=== PATIENT | male | born 1955 | race Caucasian/White ===

== ENCOUNTER 2017-06-07 08:33 | Day surgery (SDC) | payer OTHER ==
[~2017-06-07 08:33] MED LIST: Buffered Lidocaine 0.9% SYRIN* 5 ML/SYR SYRINGE INTRADERM ONE; Dexamethasone IV* 4 MG/ML 1 ML (4 MG) IV SLOW PU ONE; Dexamethasone IV* 4 MG/ML 1 ML (4 MG) ONE; Famotidine IV* 10 MG/ML 2 ML (20 mg) IV ONE; Famotidine IV* 10 MG/ML 2 ML (20 mg) ONE; Lidocaine 2% PF * 5 ML VIAL ONE; Midazolam* 1 MG/ML 2 ML VIAL (2 MG) ONE; Propofol* 10 MG/ML 20 ML BTL IV PUSH ONE; fentaNYL* 50 MCG/ML 2 ML VIAL (100 MCG VIAL) ONE
[2017-06-07] MEDS ORDERED: ceFAZolin 2 GM PREMIX (*) 2 GM/50 ML BAG IVPB ONE (08:44)
[2017-06-07] MEDS ORDERED: Bupivacaine 0.5%* 50 ML VIAL ONE (09:42)
[2017-06-07] MEDS ORDERED: Lidocaine 2% PF * 5 ML VIAL ONE (09:55)
[2017-06-07] MEDS ORDERED: Bupivacaine 0.25% SDV* 30 ML ONE (10:05)
[2017-06-07] MEDS ORDERED: Acetaminophen IV 1GM/100ML * 100 ML ONE (10:05)
[2017-06-07] MEDS ORDERED: Rocuronium* 10 MG/ML VIAL ONE (10:20)
[2017-06-07] MEDS ORDERED: HYDROmorphone INJ* 1 MG/ML CARPUJECT SYRINGE ONE (10:52)
[2017-06-07] MEDS ORDERED: PROCHLORPERAZINE INJ 5 MG/ML 2 ML VIAL IV PRN (10:55)
[2017-06-07] MEDS ORDERED: Naloxone* 0.4 MG/ML 1 ML VIAL IV PRN (10:55)
[2017-06-07] MEDS ORDERED: oxyCODONE TAB* 5 MG TAB PO PRN ×2 (10:55)
[2017-06-07] MEDS ORDERED: HYDROmorphone INJ* 1 MG/ML CARPUJECT SYRINGE IV PRN (10:55)
[2017-06-07] MEDS ORDERED: diPHENhydraMINE IV* 50 MG/ML 1 ml VIAL (BENADRYL) IV PRN (10:55)
[2017-06-07] MEDS ORDERED: fentaNYL* 50 MCG/ML 2 ML VIAL (100 MCG VIAL) IV PRN (10:55)
[2017-06-07] MEDS ORDERED: methylPREDNISolone ACETATE 80* 80 MG/ML 1 ML VIAL ONE (11:09)
[2017-06-07] MEDS ORDERED: Ondansetron INJ* 2 MG/ML VIAL ONE (11:14)
[2017-06-07 12:22] VITALS: BP 131/87
--- NOTE | 2017-06-07 13:38 | OP ---
CC: PCP, Dr. Lucien Hardwick * DATE OF OPERATION: 06/07/17 - [facility] DATE OF : 59 SURGEON: Reno Alfaro MD W[employer] MECHANIC: NADIRA Dhaliwal. Health Type Technician was needed for the entirety of the case to help with positioning, retraction, and utilized throughout all portions of the case. ANESTHESIOLOGIST: Jayla Childress MD ANESTHESIA: General. PRE-OP DIAGNOSIS: Left shoulder calcific tendinitis. POST-OP DIAGNOSIS: Left shoulder calcific tendinitis. OPERATIVE PROCEDURE: 1. Left shoulder arthroscopy with tenotomy with calcific tendon debridement. 2. Subacromial decompression with acromioplasty. 3. 80 mg of Depo-Medrol injection. INDICATIONS: Emery Montague is a 62-year-old male, who has worsening calcific tendinitis, is diagnosed over a year ago, it is persistent. The lesion has grown larger. He has failed conservative management including injections, anti-inflammatories, and physical therapy. Risks and benefits of surgery were discussed at length including, but not limited to, bleeding, infection, damage to nerves, vessels, surrounding structures, wound nonhealing, persistent pain, need for further surgery, scarring, stiffness, risk of rotator cuff tear requiring repair, and he has elected to proceed with treatment. COMPLICATIONS: None. ESTIMATED BLOOD LOSS: Minimal. DESCRIPTION OF PROCEDURE: The patient was greeted in the preoperative area by the attending surgeon. Correct extremity was marked and consent was confirmed. The patient was brought back to the operating suite, where he was placed in the supine position on the operating table. He then underwent general anesthesia with endotracheal intubation, after which he was placed in the right lateral decubitus position. All bony prominences were padded, he was secured with peg board. An axillary roll was placed, the left shoulder was draped unsterile with 10 pounds of traction. The left shoulder was prepped and draped in usual sterile fashion beginning with chlorhexidine soap and alcohol wipe, and a final prep with ChloraPrep. After appropriate surgical pause indicating site, side, procedure, and administration of antibiotics, the standard postero-lateral portals were made sharply with a 11 blade. The scope was introduced into the joint and the joint was examined. There were grade 0 to 1 changes in the glenohumeral joint. The anterior posterior labrum had mild fraying. The superior labrum had mild tearing but the biceps did not appear to be subluxed. There was no erythema on the bicipital groove. The undersurface of the rotator cuff, supraspinatus was pristine, the subscap was pristine. Once the diagnostic portion was done, attention was directed to the subacromial space. The scope was positioned into the subacromial space. The lateral portals were made in outside-in fashion. There was abundance hyperemic thick bursitis present. This was debrided back using the shaver. Electrocautery was used to maintain hemostasis as the tissue was very friable. The undersurface of the acromion was skeletonized using electro-cautery device. There was a small anterolateral spur which was debrided back using the 4.0 oval bur. All fluid and debris was removed from this portion of the case. Attention was then directed to calcific lesion, which was gently probed with a blunt probe. Once this was identified, an 18-gauge needle was used to carefully debride the calcium from this. This resulted in decompression of the calcific lesion. The shaver was used to remove the loose debris and the tendon was carefully manipulated such that there was no further tearing. At the end, the tendon was still intact and therefore, no repair required to be made. The 18 -gauge needle was placed under arthroscope visualization. The wounds were copiously irrigated with sterile saline and 80 mg of Depo-Medrol was injected into subacromial space. The remainder of the joint was injected with 0.25% Marcaine plain. Sterile dressings were applied. Cryo/Cuff and regular sling were applied. He was awoke from anesthesia and transferred to PACU in stable condition. POSTOPERATIVE PLAN: He will be nonweightbearing. He will start range of motion as soon as he is comfortable. He will be discharged on pain medications as well as antiinflammatories. DVT prophylaxis was considered but deferred due to no previous personal or family history. I will see the patient back in 10 to 14 days. [id number]/[facility] #: [id number] GENET
== END 2017-06-07 12:23 | disposition home or self-care (01) ==
LOC: OREAST 08:33
PROVIDERS: ATTEND Orthopaedic Surgery
DX: M65.222 Calcific tendinitis, left upper arm (principal); M75.42 Impingement syndrome of left shoulder; Z87.891 Personal history of nicotine dependence; M19.90 Unspecified osteoarthritis, unspecified site; D64.9 Anemia, unspecified
CPT/HCPCS: J0690; J1040; J1100; J1170; J2250; J2405; J2704; J3010

== ENCOUNTER 2017-06-12 12:45 | Emergency (ER) | payer OTHER ==
[2017-06-12 12:54] VITALS: BP 140/91
--- NOTE | 2017-06-12 12:57 | UC ---
Dental HPI - HPI Summary HPI Summary: 62 y/o male presents to the urgent care c/o toothache #15 molar in the left upper jaw since yesterday. Pt reports his dentist was doing some dental work on that molar, but he didn't return to finish it. Pt states last Wednesday he had left shoulder surgery for his Calcific Tendinopathy. He was Rx Hydrocodone which he still taking it. Pain today is 3/10 w/ mild swelling over his left cheek. Pt denies fever, SOB, trismus, chest pain, ROCK, dizziness, abdominal pain , N/V/D - History of Current Complaint Chief Complaint: UCDentalProblem Stated Complaint: DENTAL Time Seen by Provider: 06/12/17 12:53 Hx Obtained From: Patient Onset/Duration: Sudden Onset Severity: Mild Pain Intensity: 3 Pain Scale Used: 0-10 Numeric Aggravating Factor(s): Chewing Alleviating Factor(s): OTC Meds Related History: Swelling - Allergies/Home Medications Allergies/Adverse Reactions: Allergies Allergy/AdvReac Type Severity Reaction Status Date / Time ALL NUTS Allergy Severe THROAT Uncoded 06/12/17 12:54 SWELLS ENVIRONMENTAL/SEASONAL Allergy Intermediate ITCHY Uncoded 06/12/17 12:54 HAYFEVER THROAT, ITCHY EYES Home Medications: Home Medications Oxycodone HCl 5 mg PO 06/12/17 [History] PMH/Surg Hx/FS Hx/Imm Hx Previously Healthy: Yes Cardiovascular History: Hypertension Psychological History: Anxiety - Surgical History Surgical History: Yes Surgery Procedure, Year, and Place: BILATERAL CATARACT EXTRACTION WITH IOL IMPLANTS, [facility]. UMBILICIAL HERNIA REPAIR, [facility]. UMBILICIAL HERNIA REPAIR, [facility]. LEFT INGUINAL HERNIA REPAIR, [facility]. RIGHT KNEE MENISCUS SURGERY. SURGERY TO REMOVE NASAL POLYPS. tonsillectomy and adenoidectomy as a child. nose fracture repair as a child - Family History Known Family History: Positive: Cardiac Disease, Hypertension - Social History Occupation: Unemployed Lives: With Family Alcohol Use: Occasionally Substance Use Type: Marijuana Substance Use Comment - Amount & Last Used: daily Smoking Status (MU): Former Smoker Amount Used/How Often: smoked for 9 years 1ppd Have You Smoked in the Last Year: No When Did the Patient Quit Smoking/Using Tobacco: 1975 Review of Systems Constitutional: Negative Skin: Negative Eyes: Negative ENT: Dental Pain, Other - left cheek swelling Respiratory: Negative Cardiovascular: Negative Gastrointestinal: Negative Genitourinary: Negative Motor: Negative Neurovascular: Negative Musculoskeletal: Negative Neurological: Headache Psychological: Negative Is Patient Immunocompromised?: No All Other Systems Reviewed And Are Negative: Yes Physical Exam - Summary Physical Exam Summary: Vital Signs Reviewed: Yes General: well developed. well nourished male sitting in the examining table w/o any apparent distress Eyes: Positive: Conjunctiva Clear - PERRLA, EOMI, fundi grossly normal ENT: Positive: Normal ENT inspection, Hearing grossly normal, Pharyngeal erythema, TMs normal, Uvula midline. Negative: Tonsillar swelling, Tonsillar exudate, Trismus Dental: Positive: Percussion Tenderness @ - molar 15, Gross Decay/Caries @ - molar 15, mild swelling over the left cheek, no erythema observed or gum swelling around that molar positive Cervical Lymphadenopathy - B/L anterior, Other: - Neck: Positive: Supple, Nontender Respiratory: Positive: Chest non-tender, Lungs clear, Normal breath sounds, No respiratory distress Cardiovascular: Positive: RRR, No Murmur, Pulses Normal, Brisk Capillary Refill Abdomen Description: Positive: Nontender, No Organomegaly, Soft. Negative: CVA Tenderness (R), CVA Tenderness (L) Bowel Sounds: Positive: Present Musculoskeletal: Positive: Strength Intact, ROM Intact, No Edema Neurological Exam: Normal Psychological Exam: Normal Skin Exam: Normal Triage Information Reviewed: Yes Vital Signs: Initial Vital Signs Temp 100.0 F 06/12/17 12:51 Pulse 106 06/12/17 12:51 Resp 18 06/12/17 12:51 BP 140/91 06/12/17 12:51 Pulse Ox 100 06/12/17 12:51 Dental Complaint Course/Dx - Course Course Of Treatment: 62 y/o male presents to the urgent care c/o toothache #15 molar in the left upper jaw since yesterday. Pt reports his dentist was doing some dental work on that molar, but he didn't return to finish it. Pt states last Wednesday he had left shoulder surgery for his Calcific Tendinopathy. He was Rx Hydrocodone which he still taking it. Pain today is 3/10 w/ mild swelling over his left cheek. Pt denies fever, SOB, trismus, chest pain, ROCK, dizziness, abdominal pain, N/V/D. Hx obtained. PE:Percussion Tenderness @ - molar 15, Gross Decay/Caries @ - molar 15, mild swelling over the left cheek, no erythema observed or gum swelling around that molar positive Cervical Lymphadenopathy - B /L anterior. 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 Pt Rx Amoxicillin PO to cover is an infection is developing on the rooth canal and Naproxen PO for pain. Pt strongly advised to f/u with Dentist as soon as possible further evaluation and treatment. Pt's BP is elevated today advised to decrease salt in diet, monitor BP and f/u with PCP for further management. Pt understood and agreed with plan of care. Left the clinic ambulating. - Differential Dx/Diagnosis Differential Diagnosis/Dx: Dental Abscess, Dental Caries, Fractured Tooth, Odontogenic Pain, Peridontic Disease Provider Diagnoses: 1- Molar # 15 tootache w/ caries. 2- Uncontrolled HTN Discharge - Sign-Out/Discharge Documenting (check all that apply): Discharge - Discharge Plan Condition: Stable Disposition: HOME Prescriptions: Amoxicillin PO (*) [Amoxicillin 875 MG (*)] 875 mg PO BID #20 tab Naproxen TAB* [Naprosyn 250 mg TAB*] 250 mg PO Q8H PRN #30 tab PRN Reason: Pain Patient Education Materials: Low-Sodium Diet (ED), Toothache (ED) Referrals: Lucien Schwarz MD [Primary Care Provider] - 2 Days Additional Instructions: 1-Please take full course of antibiotic to avoid resistance. Please take probiotics if you develop any diarrhea while taking the antibiotic 2- Take Naproxen as instructed after meals to alleviate pain and swelling. 3- F/u with your Dentist or Dental List provided as soon as possible 1-2 days for further treatment. 4- If symptoms do not improve or worsen please return to the urgent care or f/u with your PCP for further evaluation and treatment 5-Your BP is elevated today. please decrease salt in your diet, monitor BP and if it continues to be elevated please f/u with your PCP for further management - Billing Disposition and Condition Condition: STABLE Disposition: HOME
== END 2017-06-12 13:26 | disposition home or self-care (01) ==
LOC: UCEAST 12:45
DX: K02.9 Dental caries, unspecified (principal); R03.0 Elevated blood-pressure reading, without diagnosis of hypertension; I10 Essential (primary) hypertension; F41.9 Anxiety disorder, unspecified; Z87.891 Personal history of nicotine dependence
CPT/HCPCS: 99212; G0463

== ENCOUNTER 2017-08-03 15:34 | Emergency (ER) | payer OTHER ==
--- OUTSIDE RECORDS SUMMARY | 2017-08-03 15:40 | XMS REPORT ---
:1955 External Reference #:[id number] Author Organization [facility] Address [address] [address] Phone [phone] Care Team Providers Name Role Phone Lucien Schwarz MD Primary Care Physician Unavailable Payers Type Date Identification Numbers Payment Provider Subscriber Commercial Policy Number: [id number] [place] Emery Montague PayID: [id number] [address] [address] [place] [address] Problems Date Description Provider Status Onset: 06/01/2017 Calcium deposits in tendon Reno Alfaro MD Active Family History Date Family Member(s) Problem(s) Comments General No Current Problems Social History Type Date Description Comments Marital Status Single Lives With Alone Occupation Not Currently Working ETOH Use Occasionally consumes alcohol Smoking Patient has never smoked Recreational Drug Use Denies Drug Use Daily Caffeine Consumes on average 1 cup of regular coffee per day Daily Caffeine Consumes on average 1 cup of hot tea per day Exercise Type/Frequency Exercises sporadically Allergies, Adverse Reactions, Alerts Date Description Reaction Status Severity Comments 03/17/2016 NKDA active 03/17/2016 Tree Nuts active Mouth swells up,lips and tongue Medications Medication Date Status Form Strength Qnty SIG Indications Ordering Provider Oxycodone HCL 06/07/ Active Tablets 5mg 25tabs 1-2 tabs 2017 by mouth MD Angelina every 4-6 hours as needed Cyclobenzaprine / Active Tablets 10mg Take 1/2 Unknown HCL 0000 To 1 Tab 3 Times Daily If Needed For Muscle Spasm Hydrocodone-Aceta / Active Tablets 10-325mg take 1 Unknown minophen 0000 tablet every 4 hours if needed For Severe Back Pain Lisinopril / Active Tablets 5mg 1 po qday Unknown 0000 Naproxen / Active Tablets 500mg 1 po bid Unknown 0000 Zolpidem Tartrate / Active Tablets 5mg take 1/2 Unknown 0000 to 1 tablet by mouth at bedtime if needed Equate Plus / Active Liquid as Unknown 0000 directed. Diphenhydramine / Active Capsules 25mg 1/2 to 1 Unknown HCL 0000 tablet po at hs. Baclofen / Active Tablets 10mg Take 1/2 Unknown 0000 To 1 Tablet By Mouth 3 Times A Day Medications Administered in Office Medication Date Status Form Strength Qnty SIG Indications Ordering Provider Celestone 3 mg Administered Injection Norris M and 3mg 017 MD Caroline Depomedrol Administered Injection Norris M 40MG 016 MD Caroline Vital Signs Date Vital Result Comment 07/20/2017 Height 72 inches 6'0" Weight 148.00 lb Heart Rate 68 /min BP Systolic 110 mmHg BP Diastolic 68 mmHg Body Temperature 98.8 F Pain Level 2 BMI (Body Mass Index) 20.1 kg/m2 06/22/2017 Height 72 inches 6'0" Weight 148.00 lb BP Systolic 124 mmHg BP Diastolic 66 mmHg Respiratory Rate 18 /min Body Temperature 98.5 F Pain Level 2 BMI (Body Mass Index) 20.1 kg/m2 06/01/2017 Height 72 inches 6'0" Weight 148.00 lb Heart Rate 89 /min Respiratory Rate 16 /min Pain Level 8 BMI (Body Mass Index) 20.1 kg/m2 05/06/2017 Height 72 inches 6'0" Weight 148.00 lb w/ shoes Heart Rate 76 /min reg BP Systolic Sitting 144 mmHg Rue BP Diastolic Sitting 84 mmHg Rue Respiratory Rate 16 /min Pain Level 2 left shoulder BMI (Body Mass Index) 20.1 kg/m2 12/09/2016 Height 72 inches 6'0" Weight 148.00 lb Heart Rate 76 /min BP Systolic Sitting 122 mmHg BP Diastolic Sitting 68 mmHg Respiratory Rate 16 /min Pain Level 6 BMI (Body Mass Index) 20.1 kg/m2 03/17/2016 Heart Rate 100 /min BP Systolic Sitting 128 mmHg BP Diastolic Sitting 88 mmHg Pain Level 5 02/04/2016 Height 72 inches 6'0" Weight 147.00 lb Heart Rate 76 /min BP Systolic 144 mmHg BP Diastolic 76 mmHg BMI (Body Mass Index) 19.9 kg/m2 Results Description No Information Procedures Date CPT Code Description Status 06/07/2017 54205 Arthroscopy,Shoulder Decompression Of Subacromial Space Completed W/Acromio 06/07/2017 87382 Arthroscopy,Shoulder Decompression Of Subacromial Space Completed W/Acromio 06/07/2017 73380 Arthroscopy Shoulder Debridement Extensive Completed 06/07/2017 50795 Arthroscopy Shoulder Debridement Extensive Completed 12/09/2016 Inject/Drain Joint/Bursa Major Completed 02/04/2016 63046 Rad Shoulder Comp, Min. 2 Views Completed 02/04/2016 Inject/Drain Joint/Bursa Major Completed Encounters Type Date Location Provider CPT E/M Dx Office Visit 06/01/2017 11:15a [facility] [place] [address] M65.222 [facility] Office Visit 05/06/2017 11:00a [facility] [place] [address] M65.222 [facility] M25.512 Office Visit 12/09/2016 11:30a [facility] [place] [address] M65.222 [employer] [facility] [place] Office Visit 03/17/2016 11:30a [facility] [place] [address] M75.42 [employer] [facility] [place] Office Visit 02/04/2016 11:00a [facility] [place] [address] [id number] [employer] [facility] [employer] [place] M75.42 Plan of Care Future Appointment(s):08/31/2017 1:30 pm - Reno Alfaro MD at [facility]
[2017-08-03 15:48] VITALS: BP 127/92
--- NOTE | 2017-08-03 15:48 | UC ---
Skin Complaint HPI - HPI Summary HPI Summary: 62 yo male presents with left upper arm tick noticed today. Confident it was not there yesterday. - History of Current Complaint Chief Complaint: UCUpperExtremity Time Seen by Provider: 08/03/17 15:48 Stated Complaint: TICK BITE Hx Obtained From: Patient Onset/Duration: Sudden Onset Skin Exposure Onset/Duration: Hours Ago Current Severity: None Pain Intensity: 0 - Allergy/Home Medications Allergies/Adverse Reactions: Allergies Allergy/AdvReac Type Severity Reaction Status Date / Time ALL NUTS Allergy Severe THROAT Uncoded 08/03/17 15:48 SWELLS ENVIRONMENTAL/SEASONAL Allergy Intermediate ITCHY Uncoded 08/03/17 15:48 HAYFEVER THROAT, ITCHY EYES Review of Systems Constitutional: Negative Skin: Other - Tick bite left upper arm Respiratory: Negative Cardiovascular: Negative Neurological: Negative Psychological: Negative All Other Systems Reviewed And Are Negative: Yes PMH/Surg Hx/FS Hx/Imm Hx - Additional Past Medical History Additional PMH: Chronic pain Previously Healthy: Yes Cardiovascular History: Hypertension - Surgical History Surgical History: Yes Surgery Procedure, Year, and Place: BILATERAL CATARACT EXTRACTION WITH IOL IMPLANTS, [facility]. UMBILICIAL HERNIA REPAIR, [facility]. UMBILICIAL HERNIA REPAIR, [facility]. LEFT INGUINAL HERNIA REPAIR, [facility]. RIGHT KNEE MENISCUS SURGERY. SURGERY TO REMOVE NASAL POLYPS. tonsillectomy and adenoidectomy as a child. nose fracture repair as a child - Family History Known Family History: Positive: Cardiac Disease, Hypertension - Social History Lives: With Family Alcohol Use: Occasionally Substance Use Type: Marijuana Substance Use Comment - Amount & Last Used: daily Smoking Status (MU): Former Smoker Amount Used/How Often: smoked for 9 years 1ppd Have You Smoked in the Last Year: No When Did the Patient Quit Smoking/Using Tobacco: 1975 Physical Exam - Summary Physical Exam Summary: GENERAL: NAD. WDWN. No pain distress. SKIN: Left upper medial arm: Nymph tick embedded within skin. Mild erythema surrounding tick. No streaking, bleeding, or drainage. NECK: Supple. Nontender. No lymphadenopathy. CHEST: No accessory muscle use. Breathing comfortably and in no distress. CV: RRR. Without m/r/g. NEURO: Alert. CN II-XII grossly intact. PSYCH: Age appropriate behavior. Triage Information Reviewed: Yes Vital Signs: Initial Vital Signs Temp 98.7 F 08/03/17 15:42 Pulse 104 08/03/17 15:42 Resp 18 08/03/17 15:42 BP 127/92 08/03/17 15:42 Pulse Ox 100 08/03/17 15:42 Course/Dx - Course Course Of Treatment: Tick easily removed with tick twister. No treatment needed. - Diagnoses Provider Diagnoses: tick bite left arm Discharge - Sign-Out/Discharge Documenting (check all that apply): Discharge/Admit/Transfer - Discharge Plan Condition: Stable Disposition: HOME Patient Education Materials: Tick Bite (ED) Referrals: Lucien Schwarz MD [Primary Care Provider] - Additional Instructions: TICK BITE: You have been bitten by a tick. Once the tick is removed, these "bites" usually cause no problems. Tick fever, tick paralysis, [place] Spotted fever, and Lyme disease are uncommon -- but you should mention this tick bite to your doctor if you develop unusual symptoms in the next several weeks. If you develop any of the following, please see your physician promptly: (1) Fever, chills, or generalized malaise associated with a headache. (2) A red round area at the site of the bite (or elsewhere) (3) Joint pain, joint swelling or generalized weakness. (4) Redness, swelling, or drainage at the site of the bite. - Billing Disposition and Condition Condition: STABLE Disposition: Home
== END 2017-08-03 16:02 | disposition home or self-care (01) ==
LOC: UCEAST 15:34
DX: S40.862A Insect bite (nonvenomous) of left upper arm, initial encounter (principal); W57.XXXA Bitten or stung by nonvenomous insect and other nonvenomous arthropods, initial encounter; Y93.9 Activity, unspecified; Y92.9 Unspecified place or not applicable; I10 Essential (primary) hypertension; Z87.891 Personal history of nicotine dependence; Z82.49 Family history of ischemic heart disease and other diseases of the circulatory system
CPT/HCPCS: 99211; G0463

== ENCOUNTER 2017-12-13 10:04 | Day surgery (SDC) | payer OTHER ==
--- NOTE | 2017-12-10 19:26 | HP ---
PREOPERATIVE HISTORY AND PHYSICAL: DATE OF ADMISSION/SURGERY: 12/13/17 - [facility] DATE OF OFFICE VISIT: 12/10/17 ATTENDING SURGEON: Dr. Reno Alfaro.* (DICTATED BY NADIRA LEE) PROCEDURE: Left shoulder arthroscopic rotator cuff repair, decompression, debridement, possible subpectoral biceps tenodesis. CHIEF COMPLAINT: Left shoulder. HISTORY OF PRESENT ILLNESS: Emery is a 62-year-old male, who presents to the clinic for followup of his left shoulder pain due to rotator cuff tear and biceps tendinitis. He has failed conservative measures and therefore agreed to undergo a left shoulder arthroscopic rotator cuff repair, decompression, debridement, and possible subpectoral biceps tenodesis with Dr. Alfaro on . PAST MEDICAL HISTORY: Borderline anemia, hypertension, arthritis. PAST SURGICAL HISTORY: Left shoulder scope, 3 hernia surgeries, knee scope, nasal polyp surgery, tonsillectomy, other nose surgeries. The patient denies prior complications to anesthesia. MEDICATIONS: 1. Cyclobenzaprine 10 mg one-half to 1 tab 3 times a day for muscle spasms. 2. Lisinopril 5 mg 1 by mouth daily. 3. Naproxen 500 mg 1 by mouth twice a day. 4. Ambien 5 mg one-half to 1 tab by mouth at bedtime as needed. 5. plus as directed. 6. Diphenhydramine 25 mg one-half to 1 tab by mouth at night. 7. Baclofen 10 mg one-half to 1 tab by mouth 3 times a day. 8. Hydrocodone and acetaminophen 10/325 one tab every 6 hours as needed for pain. ALLERGIES: No known drug allergies. FAMILY HISTORY: Positive for diabetes and hypertension. SOCIAL HISTORY: He lives alone. He is not working. He denies tobacco use. He is a former smoker, quit in 1971. He reports occasional alcohol consumption. He exercises occasionally. He is right hand dominant. REVIEW OF SYSTEMS: A 14-point review of systems was reviewed with the patient. Positive for current complaint, otherwise negative. Denies fevers, chills, chest pain, shortness of breath, history of bleeding disorder, history of DVT or PE. PHYSICAL EXAMINATION GENERAL: A 62-year-old, well-developed, well-nourished male, in no acute distress. Alert and oriented x3. Appropriate mood and affect. Appropriate balance and coordination of the upper extremities. VITAL SIGNS: Height 72, weight 144, pulse 64, blood pressure 118/80, respiratory rate 12, temperature 98.2, BMI 19.5. HEENT: Normocephalic, atraumatic. PERRLA. Throat clear. NECK: Supple. PULMONARY: Lungs clear to auscultation bilaterally. No wheezing, rhonchi, or rales. CARDIO: Regular rate and rhythm. S1 and S2. No murmurs, gallops, or rubs. No edema. ABDOMEN: Positive bowel sounds. Soft and nontender. MUSCULOSKELETAL: Left upper extremity: Skin is intact. No warmth or erythema. Forward flexion and abduction to 155, external rotation to 50, internal rotation to thoracolumbar spine. Full range of motion , +4/5 strength, rotator cuff testing with pain. Positive impingement with Speed, Styles-Lucho, and De Baca. +2 radial pulse. Sensation intact to light touch distally. NEURO: Alert and oriented x3. Cranial nerves grossly intact. Sensation intact to light touch. DIAGNOSTIC STUDIES: MRI revealed partial-thickness tearing of the bursal side of the supraspinatus tendon. No evidence of fracture or dislocation. IMPRESSION: Left shoulder rotator cuff tear. PLAN: The patient is scheduled to undergo a left shoulder arthroscopic rotator cuff repair, decompression, debridement, and possible subpectoral biceps tenodesis with Dr. Alfaro on 12/13/17. He will follow up 10 to 14 days postop for followup and suture removal. He is on chronic pain meds; therefore, oxycodone 5 mg will be used for postop pain and Keflex for antibiotic prophylaxis if the biceps tenodesis is done. NADIRA LEE [id number]/[facility] #: [id number] [facility] CENTERPierre
[~2017-12-13 10:04] MED LIST changes: -Buffered Lidocaine 0.9% SYRIN* 5 ML/SYR SYRINGE INTRADERM ONE; -Dexamethasone IV* 4 MG/ML 1 ML (4 MG) IV SLOW PU ONE; -Famotidine IV* 10 MG/ML 2 ML (20 mg) IV ONE; -Lidocaine 2% PF * 5 ML VIAL ONE; -Midazolam* 1 MG/ML 2 ML VIAL (2 MG) ONE; -Propofol* 10 MG/ML 20 ML BTL IV PUSH ONE; -fentaNYL* 50 MCG/ML 2 ML VIAL (100 MCG VIAL) ONE
[2017-12-13] MEDS ORDERED: ceFAZolin 2 GM PREMIX in ORs 2 GM/50 ML BAG IVPB ONE (10:14)
[2017-12-13] MEDS ORDERED: ROPIVACAINE 5 MG/ML 30 ML BTL (0.5%) ONE (10:32)
[2017-12-13] MEDS ORDERED: Mivacurium Chloride* 20 MG/10 ML VIAL IV ONE (10:44)
[2017-12-13] MEDS ORDERED: Lidocaine 2% PF * 5 ML VIAL ONE ×2 (10:44→12:04)
[2017-12-13] MEDS ORDERED: fentaNYL* 50 MCG/ML 2 ML VIAL (100 MCG VIAL) ONE (10:45)
[2017-12-13] MEDS ORDERED: Midazolam* 1 MG/ML 5 ML VIAL (5 MG) ONE (10:45)
[2017-12-13] MEDS ORDERED: PROCHLORPERAZINE INJ 5 MG/ML 2 ML VIAL IV PRN (10:54)
[2017-12-13] MEDS ORDERED: Naloxone* 0.4 MG/ML 1 ML VIAL IV PRN (10:54)
[2017-12-13] MEDS ORDERED: Scopolamine 1.5 mg* PATCH TRANSDERM PRN (10:54)
[2017-12-13] MEDS ORDERED: fentaNYL* 50 MCG/ML 2 ML VIAL (100 MCG VIAL) IV PRN (10:54)
[2017-12-13] MEDS ORDERED: oxyCODONE/Acetamin 5/325 MG* TAB PO PRN (10:54)
[2017-12-13] MEDS ORDERED: HYDROcodone/ACETAMIN 5-325 MG* 1 TAB PO PRN (10:54)
[2017-12-13] MEDS ORDERED: EPHEDrine (Pressors)* 50 MG/ML VIAL ONE (12:41)
[2017-12-13] MEDS ORDERED: Phenylephrine INJ* 10 MG/ML 1 ML VIAL (10 MG) ONE (13:12)
[2017-12-13] MEDS ORDERED: Ondansetron INJ* 2 MG/ML VIAL ONE (13:48)
[2017-12-13 15:31] VITALS: BP 129/79
--- NOTE | 2017-12-14 11:19 | OP ---
CC: PCP, Lucien Hardwick MD * DATE OF OPERATION: 12/13/17 - [facility] DATE OF : 59 SURGEON: Reno Alfaro MD FOOD SERVICE ORDER CLERK: NADIRA Dhaliwal. An purchasing assistant was needed for the entirety of the case to help with positioning, retraction and was utilized throughout all portions of the case. ANESTHESIOLOGIST: Dr. Juares. ANESTHESIA: General interscalene block. PRE-OP DIAGNOSIS: High-grade partial thickness bursal-sided tearing of the left supraspinatus tendon. POST-OP DIAGNOSES: 1. High grade partial thickness bursal-sided tearing of the left supraspinatus tendon. 2. Superior labral tearing. OPERATIVE PROCEDURE: 1. Left shoulder arthroscopy with extensive glenohumeral debridement. 2. Arthroscopic biceps tenodesis. 3. Rotator cuff repair and supraspinatus tendon in a double-row fashion with augment of Regeneten patch. 3. Revision subacromial decompression with acromioplasty. COMPLICATIONS: None. ESTIMATED BLOOD LOSS: Minimal. IMPLANTS USED: Two 4.75 Healicoil, one Multifix and one Regeneten patch size medium with the appropriate tendon jillian and bone jillian. INDICATIONS: Emery Montague is a 62-year-old male with initially calcific tendinitis, he underwent arthroscopy with debridement of calcific lesion. He initially did okay but then had persistent pain. We repeated an MRI and determined a high grade partial thickness tearing to the bursal-sided aspect of the cuff. The patient has failed conservative management and would like to proceed with surgical treatment. Risks and benefits were discussed at length and included, but not limited to bleeding, infection, damage to nerves, vessels , surrounding structures, wound nonhealing, persistent pain, need for further surgery, scarring, stiffness, incomplete relief of symptoms, risks of anesthesia. DESCRIPTION OF PROCEDURE: The patient was greeted in the preoperative area by the attending surgeon. Correct extremity was marked and the consent was confirmed. The patient underwent interscalene nerve block by the anesthesiologist after which he was brought back to the operating suite, where he was placed in a supine position on the operating table. He then underwent general anesthesia under endotracheal intubation after which the patient was placed in the right lateral decubitus position. An axillary roll was placed. He was secured with a peg board. All bony prominences were padded. Left arm was draped unsterile with 10 pounds of traction. Left shoulder was then prepped and draped in usual sterile fashion beginning with chlorhexidine soap, scrub, and alcohol wipe and a final prep with ChloraPrep. After appropriate surgical pause indicating site, side, procedure and administration of antibiotics, the posterolateral portal was made and the scope was then advanced into the joint. Glenohumeral joint had grade 0 to 1 changes. Biceps had a type 2 SLAP tear. Anterior portal was made in an outside-in fashion, the biceps tendon was marked for later arthroscopic biceps tenodesis and the anterior, posterior superior labrum were debrided. The remainder of the glenohumeral joint had grade 0 change but the joint was mildly tight. Attention was then directed to subacromial space. The scope was positioned in subacromial space. The lateral portal was made in an outside-in fashion. Shaver was used to debride back the bursa that was adherent. The anterolateral aspect of the acromion had a very tight downward- sloping spur that was not fully resected on his first surgery. Therefore, a 4- 0 oval jamar was then used to debride this back. At this point, the anterior aspect of the cuff was probed and found to have high grade partial thickness tearing. The articular surface had initially been seen and found to be completely pristine but because of the bursal-sided portion being torn both on the MRI, his symptoms as well as arthroscopically, therefore an incision was made to release it to detach and then reattach. The 11-blade was used to detach this. As it was done, it was noted that there was abundant extra calcium that was built in into the tendon, more than what was present at the first type of surgery. This was then carefully debrided back. The cuff tissue was then mobilized. The cuff was released all the way anteriorly to expose the biceps tendon and subacromial space. As this was done, tension was placed in the biceps and incision was made to tenodese this arthroscopically. The biceps was released from its insertion intra-articularly and then a 4.75 Healicoil was placed adjacent to the bicipital groove and passed through the tendon in a looped suture fixation. This was then tied down and secured. Excess stump was debrided back. Attention was then directed to the remainder of the rotator cuff. The greater tuberosity was prepared in the usual fashion and a 4-0 oval jamar was used to gently decorticate, a rasp was also used to roughen up the bone. The tendon was then also debrided back and a 4.75 Healicoil was placed in the medial aspect of the footprint. An anchor was placed with excellent purchase. The sutures were then passed through the tendon in horizontal mattress configuration and this was then tied down using arthroscopic knot tying technique. Sutures were then passed through the Multifix anchor for lateral row fixation. An incision was made to do a Regeneten patch to allow this to heal as this was the patient's second surgery and a Regeneten patch was brought to the field, size medium, and was placed arthroscopically over the previously repaired tendon and then secured with tendon jillian and then bone jillian. Care was made to not damage the previously repaired tendon. This was placed with excellent purchase and the final images were obtained. Wounds were copiously irrigated with sterile saline. The portals were closed with 3-0 nylon. Sterile dressings were applied. Cryo/Cuff and UltraSling were applied. He was awoken from anesthesia and transferred to PACU in stable condition. POSTOPERATIVE PLAN: He will be nonweightbearing. He will be discharged on pain medication. DVT prophylaxis was considered, but deferred due to no previous personal or family history. I will see the patient back in 10 to 14 days. [id number]/[facility] #: [id number] GENET
[2017-12-16] MEDS ORDERED: Scopolamine PATCH Remove* 1 NOTE MISC PATCH OFF ONE (10:55)
== END 2017-12-13 15:28 | disposition home or self-care (01) ==
LOC: OREAST 10:04
PROVIDERS: ATTEND Orthopaedic Surgery
DX: S46.012A Strain of muscle(s) and tendon(s) of the rotator cuff of left shoulder, initial encounter (principal); S43.492A Other sprain of left shoulder joint, initial encounter; X58.XXXA Exposure to other specified factors, initial encounter; Y92.9 Unspecified place or not applicable; G89.18 Other acute postprocedural pain; Z87.891 Personal history of nicotine dependence; I10 Essential (primary) hypertension
CPT/HCPCS: 88304; C1713; J0690; J1100; J2250; J2405; J2795; J3010

== ENCOUNTER 2018-05-21 13:32 | Emergency (ER) | payer OTHER ==
[2018-05-21 13:43] VITALS: BP 133/86
[2018-05-21] MEDS ORDERED: Lidocaine 2% VISCOUS* 15 ML UDC PO ONE (14:23)
--- NOTE | 2018-05-21 14:30 | UC ---
Dental HPI - HPI Summary HPI Summary: left upper dental pain for "awhile now" it has flared back up---he has been using whiskey on it and rinsing mouth with 1 tsp Clorox and 4 ounce water prn per his dentist---patient c/o bilateral chronic shoulder pain that has limited his ability to work--- patient received 100 10mg/325 hydrocodone 04/30/18 - History of Current Complaint Chief Complaint: UCDentalProblem Stated Complaint: DENTAL PAIN Time Seen by Provider: 05/21/18 13:38 Hx Obtained From: Patient Onset/Duration: Gradual Onset, Still Present Pain Intensity: 1 Pain Scale Used: 0-10 Numeric Aggravating Factor(s): Chewing Alleviating Factor(s): Nothing Related History: Previous Dental Care on Same Tooth - Allergies/Home Medications Allergies/Adverse Reactions: Allergies Allergy/AdvReac Type Severity Reaction Status Date / Time ALL NUTS Allergy Severe THROAT Uncoded 04/25/18 12:57 SWELLS ENVIRONMENTAL/SEASONAL Allergy Intermediate ITCHY Uncoded 04/25/18 12:57 HAYFEVER THROAT, ITCHY EYES PMH/Surg Hx/FS Hx/Imm Hx Previously Healthy: No - shoulder surgery, now frozen left shoulder Cardiovascular History: Hypertension - Surgical History Surgical History: Yes Surgery Procedure, Year, and Place: BILATERAL CATARACT EXTRACTION WITH IOL IMPLANTS, [facility] [place], 2012, 2007. UMBILICIAL HERNIA REPAIR, [facility],. UMBILICIAL HERNIA REPAIR, [facility] [place],. LEFT INGUINAL HERNIA REPAIR, [facility] [place]. RIGHT KNEE MENISCUS SURGERY. SURGERY TO REMOVE NASAL POLYPS. tonsillectomy and adenoidectomy as a child. nose fracture repair as a child. LEFT SHOULDER SURGERY 05/2017 - Family History Known Family History: Positive: Cardiac Disease, Hypertension - Social History Occupation: Disabled Lives: Alone Alcohol Use: Occasionally Alcohol Amount: 5 per month Substance Use Type: None Substance Use Comment - Amount & Last Used: medical Smoking Status (MU): Former Smoker Amount Used/How Often: smoked for 9 years 1ppd Have You Smoked in the Last Year: No When Did the Patient Quit Smoking/Using Tobacco: 1975 Review of Systems All Other Systems Reviewed And Are Negative: Yes Constitutional: Positive: Negative Skin: Positive: Negative Eyes: Positive: Negative ENT: Positive: Dental Pain - #14 Respiratory: Positive: Negative Cardiovascular: Positive: Negative Gastrointestinal: Positive: Negative Genitourinary: Positive: Negative Motor: Positive: Negative Neurovascular: Positive: Negative Musculoskeletal: Positive: Negative Neurological: Positive: Negative Psychological: Positive: Negative Is Patient Immunocompromised?: No Physical Exam Triage Information Reviewed: Yes Appearance: Well-Appearing, No Pain Distress, Thin Vital Signs: Initial Vital Signs Temp 98 F 05/21/18 13:39 Pulse 87 05/21/18 13:39 Resp 20 05/21/18 13:39 BP 133/86 05/21/18 13:39 Pulse Ox 100 05/21/18 13:39 Vital Signs Reviewed: Yes Eye Exam: Normal Eyes: Positive: Conjunctiva Clear ENT Exam: Normal ENT: Positive: Normal ENT inspection, Hearing grossly normal, Pharynx normal, Dental tenderness. Negative: Nasal congestion, Trismus, Muffled voice, Hoarse voice, Sinus tenderness, Uvula midline Dental Exam: Other Dental: Positive: Percussion Tenderness @ - #14, Gross Decay/Caries @ - #14 Neck exam: Normal Neck: Positive: Supple, Nontender, No Lymphadenopathy Respiratory Exam: Normal Respiratory: Positive: Chest non-tender, No respiratory distress, No accessory muscle use Cardiovascular Exam: Normal Cardiovascular: Positive: RRR, Pulses Normal, Brisk Capillary Refill Musculoskeletal Exam: Normal - per patients baseline Neurological Exam: Normal Neurological: Positive: Alert, Muscle Tone Normal Psychological Exam: Normal Skin Exam: Normal Dental Complaint Course/Dx - Course Course Of Treatment: stop Clorox and water rinse, stop the whiskey---use lidocaine and tooth apply with q-tip prn follow with dentist and pcp prn - Differential Dx/Diagnosis Provider Diagnosis: Pain, dental Discharge - Sign-Out/Discharge Documenting (check all that apply): Patient Departure All imaging exams completed and their final reports reviewed: No Studies - Discharge Plan Condition: Stable Disposition: HOME Prescriptions: Amoxicillin PO (*) [Amoxicillin 875 MG (*)] 875 mg PO BID #20 tab Patient Education Materials: Toothache (ED) Referrals: Lucien Schwarz MD [Primary Care Provider] - 3 Days - Billing Disposition and Condition Condition: STABLE Disposition: Home - Attestation Statements Provider Attestation: I was available for consult. This patient was seen by the CHRISTIE. The patient was not presented to, seen by, or examined by me. -Gerardo
== END 2018-05-21 14:35 | disposition home or self-care (01) ==
LOC: UCEAST 13:32
DX: K08.89 Other specified disorders of teeth and supporting structures (principal); I10 Essential (primary) hypertension; Z87.891 Personal history of nicotine dependence
CPT/HCPCS: 99212; G0463

== ENCOUNTER 2018-06-19 11:59 | Emergency (ER) | payer OTHER ==
[2018-06-19 12:32] VITALS: BP 134/88
--- NOTE | 2018-06-19 12:42 | UC ---
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 was seen here 1 month ago with similar symptoms, given amoxicillin - took care of the pain at the time - History of Current Complaint Chief Complaint: UCDentalProblem Stated Complaint: TOOTH PAIN Time Seen by Provider: 06/19/18 12:37 Hx Obtained From: Patient Onset/Duration: Sudden Onset, Lasting Days Severity: Mild Pain Intensity: 2 Related History: Previous Dental Care on Same Tooth - Allergies/Home Medications Allergies/Adverse Reactions: Allergies Allergy/AdvReac Type Severity Reaction Status Date / Time ALL NUTS Allergy Severe THROAT Uncoded 06/19/18 12:32 SWELLS PMH/Surg Hx/FS Hx/Imm Hx Previously Healthy: Yes - Surgical History Surgical History: Yes Surgery Procedure, Year, and Place: BILATERAL CATARACT EXTRA[place] WITH [place] IMPLANTS[place] [facility] [place], [place]. UMBILICIAL HERNIA REPAIR, [facility],. UMBILICIAL [place]ERNIA [place]PAIR, [facility] [place],. LEFT [place]GUINAL [place]PA[place], [facility] [place]. RIGHT KNEE MENISCUS SURGERY. SURGERY TO REMOVE NASAL POLYPS. tonsillectomy and adenoidectomy as a child. nose fracture repair as a child. two LEFT SHOULDER SURGERIES - Family History Known Family History: Positive: Cardiac Disease, Hypertension - Social History Alcohol Use: Rare Alcohol Amount: 5 per month Substance Use Type: None Substance Use Comment - Amount & Last Used: uses medical marijuana Smoking Status (MU): Former Smoker Amount Used/How Often: smoked for 9 years 1ppd Have You Smoked in the Last Year: No When Did the Patient Quit Smoking/Using Tobacco: 1975 Review of Systems All Other Systems Reviewed And Are Negative: Yes Constitutional: Positive: Negative Skin: Positive: Negative Eyes: Positive: Negative ENT: Positive: Dental Pain Respiratory: Positive: Negative Cardiovascular: Positive: Negative Gastrointestinal: Positive: Negative Genitourinary: Positive: Negative Motor: Positive: Negative Neurovascular: Positive: Negative Musculoskeletal: Positive: Negative Neurological: Positive: Negative Psychological: Positive: Negative Is Patient Immunocompromised?: No Physical Exam Triage Information Reviewed: Yes Appearance: Well-Appearing, Well-Nourished, Pain Distress Vital Signs: Initial Vital Signs Temp 97.6 F 06/19/18 12:28 Pulse 60 06/19/18 12:28 Resp 16 06/19/18 12:28 BP 134/88 06/19/18 12:28 Pulse Ox 97 06/19/18 12:28 Vital Signs Reviewed: Yes Eye Exam: Normal ENT Exam: Normal Dental: Positive: Gross Decay/Caries @, Cellulitis @ - of upper left gum line Neck exam: Normal Respiratory Exam: Normal Cardiovascular Exam: Normal Abdominal Exam: Normal Bowel Sounds: Positive: Present Musculoskeletal Exam: Normal Neurological Exam: Normal Psychological Exam: Normal Skin Exam: Normal Dental Complaint Course/Dx - Course Course Of Treatment: hx obtained, exam performed ,meds reviewed, treated for dental pain and infections - Differential Dx/Diagnosis Provider Diagnosis: Pain due to dental caries Discharge - Sign-Out/Discharge Documenting (check all that apply): Patient Departure All imaging exams completed and their final reports reviewed: No Studies - Discharge Plan Condition: Stable Disposition: HOME Prescriptions: Amoxicillin PO (*) [Amoxicillin 875 MG (*)] 875 mg PO BID #14 tab Patient Education Materials: Toothache (ED) Referrals: Lucien Schwarz MD [Primary Care Provider] - Additional Instructions: 1. take the medication as prescribed, 2. krystle our lidcaine and ibuprofen for pain - Billing Disposition and Condition Condition: STABLE Disposition: Home - Attestation Statements Provider Attestation: I was available for consult. This patient was seen by the CHRISTIE. The patient was not presented to , seen by or examined by il -Porter Prieto MD
== END 2018-06-19 12:57 | disposition home or self-care (01) ==
LOC: UCEAST 11:59
DX: K02.9 Dental caries, unspecified (principal); K12.2 Cellulitis and abscess of mouth; K08.89 Other specified disorders of teeth and supporting structures; Z91.018 Allergy to other foods; Z87.891 Personal history of nicotine dependence
CPT/HCPCS: 99212; G0463